=== PATIENT | female | born 1970 | race Caucasian/White ===

== ENCOUNTER 2017-04-17 19:02 | Emergency (ER) | payer MEDICAID ==
[~2017-04-17] VITALS: Ht 162.6 cm; Wt 74.0 kg
[~2017-04-17 19:02] MED LIST: DICL50TA11 PO; HYDR-3498 PO; PREN1TAB49 PO
[2017-04-17 19:05] VITALS: Ht 162.6 cm; Wt 74.0 kg
[2017-04-17] MEDS ORDERED: KETOROLAC 30 MG INJ IM STA (21:11)
[2017-04-17 21:13] LABS: URINE BLOOD (Dip) POC Trace-intact (NEGATIVE)
[2017-04-17] MEDS ORDERED: ONDA4TAB14 PO (22:17)
[2017-04-17] MEDS ORDERED: DICY10CA60 PO (22:17)
--- NOTE | 2017-04-17 22:24 | ERD ---
ER Documentation Chief Complaint Date/Time DATE: 04/17/17 TIME: 22:18 Chief Complaint painful urination x 1 day, N/V/D HPI Patient is a 46-year-old female past medical history of an appendectomy and cholecystectomy who presents to the emergency department with numerous complaints. Patient states she had painful urination for 1 day. Patient reports urinary frequency and urgency. Patient denies any hematuria or flank pain. She does report taking Azo for her symptoms. Patient states she has had nausea and vomiting as well as diarrhea since 2 days ago. Patient states she has had 3-4 episodes of nonbloody nonbilious vomiting today. Patient reports approximally 7 episodes of nonbloody nonmucousy, watery stools today. Patient states her last episode of diarrhea was 3 hours ago. Patient denies any fevers , chills. Patient does report diffuse abdominal cramping. Patient is able to tolerate rate p.o. fluids. Patient denies any sick contacts. No recent travel. No recent antibiotic use. ROS All systems reviewed and are negative except as per history of present illness. Medications Home Meds Active Scripts Ondansetron (Ondansetron Odt) 4 Mg Tab.rapdis, 4 MG PO Q6H Y for NAUSEA AND/OR VOMITING, #10 TAB Prov:REJI ALVAREZ PA-C 04/17/17 Dicyclomine Hcl* (Bentyl*) 10 Mg Capsule, 10 MG PO QID, #20 CAP Prov:REJI ALVAREZ PA-C 04/17/17 Diclofenac Sodium* (Diclofenac Sodium*) 50 Mg Tablet.dr, 50 MG PO TID, #10 TAB Prov:MARGRET SALAZAR DO 09/04/15 Hydrocodone Bit-Acetaminophen* ([place]*) 5-325 Mg Tab, 1 TAB PO Q6 Y for PAIN, # 10 TAB Prov:MARGRET SALAZAR DO 09/04/15 Reported Medications Vits W-Ca,Fe,Fa(<1MG) () 1 Tab Tablet, 1 TAB PO DAILY 06/08/11 Allergies Allergies: Coded Allergies: Penicillins (Verified Allergy, Mild, 09/04/15) PMhx/Soc History of Surgery: Yes (, JANAY, APPY) Anesthesia Reaction: No Hx Neurological Disorder: No Hx Respiratory Disorders: No Hx Cardiac Disorders: No Hx Psychiatric Problems: No Hx Miscellaneous Medical Probl: No Hx Alcohol Use: No Hx Substance Use: No Hx Tobacco Use: No Smoking Status: Never smoker Physical Exam Vitals Vital Signs Date Time Temp Pulse Resp B/P Pulse Ox O2 Delivery O2 Flow Rate FiO2 04/17/17 22:33 98.7 97 17 163/82 100 Room Air 04/17/17 19:05 98.3 110 20 163/88 100 Physical Exam GENERAL: Well-developed, well-nourished female. Appears in no acute distress. HEAD: Normocephalic, atraumatic. EYES: Pupils are equally reactive bilaterally. EOMs grossly intact. No conjunctival erythema. ENT: Moist mucous membranes. No uvula deviation. No kissing tonsils. NECK: Supple. No meningismus. Normal range of motion of the neck. LUNG: Clear to auscultation bilaterally. No rhonchi, wheezing, rales or coarse breath sounds. HEART: Regular rate and rhythm. No murmurs, rubs or gallops. ABDOMEN: Soft, and nondistended. Normal tenderness to palpation in all 4 quadrants. Positive bowel sounds in all four quadrants. No rebound tenderness, no guarding. (-) McBurney's point tenderness. No CVA tenderness. BACK: No midline tenderness. EXTREMITIES: Equal pulses bilaterally. No peripheral clubbing, cyanosis or edema. No unilateral leg swelling. NEUROLOGIC: Alert and oriented. Moving all four extremities without any difficulty. Normal speech. Steady gait. SKIN: Normal color. Warm and dry. No rashes or lesions. Results 24 hrs Laboratory Tests Test 04/17/17 21:20 Bedside Urine pH (LAB) 6.0 Bedside Urine Protein (LAB) Negative Bedside Urine Glucose (UA) Negative Bedside Urine Ketones (LAB) Negative Bedside Urine Blood Trace-intact Bedside Urine Nitrite (LAB) Negative Bedside Urine Leukocyte Esterase (L Negative Current Medications Medications (Trade) Dose Ordered Sig/Rose Marie Route PRN Reason Start Time Stop Time Status Last Admin Dose Admin Ketorolac Tromethamine (Toradol) 30 mg ONCE STAT IM 04/17/17 21:11 04/17/17 21:12 DC 04/17/17 21:40 Procedures/MDM MEDICAL DECISION MAKING: This is a 46-year-old female with past medical history of an appendectomy and cholecystectomy presents to the emergency department with numerous concerns including dysuria, nausea, vomiting and diarrhea. Patient states his dysuria has been present for 1 day. Patient states her nausea, vomiting diarrhea been present for 2 days.. Vital signs were reviewed. Patient is afebrile. Urine dip showed showed no evidence of acute infection or hematuria. . Low suspicion for UTI, pyelonephritis or nephrolithiasis. Urine test was negative. Patient was tolerating p.o. fluids. Low suspicion for the patient requiring IV rehydration therapy at this time. At this time patient's presentation is most consistent with dysuria and vomiting/diarrhea of viral etiology. Low suspicion for bowel obstruction, bowel perforation, pancreatitis, infectious diarrhea, UTI , pyelonephritis, nephrolithiasis. PRESCRIPTIONS: Bentyl, Zofran DISCHARGE: At this time, patient is stable for discharge and outpatient management. She was advised to drink plenty of fluids. Patient was a copy of all studies obtained today. I have instructed the patient to follow-up with his/her primary care physician in 1-2 days. I have instructed the patient to promptly return to the ER at any time for any new or worsening symptoms including increased pain, nausea, vomiting, diarrhea, fever, weakness or LOC. The patient and/or family expressed understanding of and agreement with this plan. All questions were answered. Home care instructions were provided. Disclaimer: Inadvertent spelling and grammatical errors are likely due to EHR/ dictation software use and do not reflect on the overall quality of patient care. Also, please note that the electronic time recorded on this note does not necessarily reflect the actual time of the patient encounter. Departure Diagnosis: Primary Impression: Nausea vomiting and diarrhea Additional Impression: Dysuria Condition: Stable Patient Instructions: Dysuria, Self-Care for Vomiting and Diarrhea Additional Instructions: Call your primary care doctor TOMORROW for an appointment during the next 1-2 days.See the doctor sooner or return here if your condition worsens before your appointment time. REJI ALVAREZ PA-C Apr 17, 2017 22:24
[2017-04-17 22:33] VITALS: BP 163/82; PULSE 97; RESP 17; TEMP 98.7
== END 2017-04-17 22:34 | disposition home or self-care (01) ==
LOC: FTE 19:02
DX: R11.2 Nausea with vomiting, unspecified (principal); R19.7 Diarrhea, unspecified; R30.0 Dysuria
CPT/HCPCS: 81003; J1885; 96372

== ENCOUNTER 2017-06-02 19:50 | Emergency (ER) | payer MEDICAID ==
[~2017-06-02] VITALS: Ht 162.6 cm; Wt 73.5 kg
[~2017-06-02 19:50] MED LIST changes: +DICY10CA60 PO; +ONDA4TAB14 PO
[2017-06-02 20:07] VITALS: Ht 162.6 cm; Wt 73.5 kg
[2017-06-02] MEDS ORDERED: SOD CHLORIDE 0.9% 1,000 ML IV STA (22:06)
[2017-06-02] MEDS ORDERED: morphine 4 MG/ML VIAL IV STA (22:06)
[2017-06-02] MEDS ORDERED: ONDANSETRON 4 MG INJ IV STA (22:06)
--- NOTE | 2017-06-02 22:53 | RADRPT ---
PROCEDURE: US Pelvis. CLINICAL INDICATION: Pelvic pain. TECHNIQUE: The pelvis was evaluated with transabdominal and transvaginal sonography in the axial a nd sagittal planes. COMPARISON: No prior study is available for comparison. FINDINGS: Uterus: 9.5 x 5.2 x 6.2 cm. Endometrium: 10.1 mm. Right ovary: Not visualized. Left ovary: 3.1 x 2.2 x 2.3 cm. Uterine masses: There is a fundal fibroid measuring 3.3 cm in maximal dimension. The uterus is diffu sely heterogeneous. Ovarian masses: The right ovary is not visualized. The left ovary is normal. Color Doppler and pulse d Doppler sonography demonstrate normal flow to the left ovary. Other pelvic masses: None. Free fluid: None. IMPRESSION: 1. Fundal fibroid measuring 3.3 cm. 2. Right ovary not visualized. 3. Otherwise normal pelvic ultrasound. RPTAT: QQ .Harjit Saldaña MD, MD Date Time Electronically viewed and signed by .Harjit Saldaña MD, on 06/02/2017 22:53 .R/
[2017-06-02 23:10] LABS: BASOPHIL # 0.1 10^3/ul (0.0-0.1); BASOPHILS % 0.6 % (0.0-2.0); EOSINOPHILS # 0.3 10^3/ul (0.0-0.5); HEMATOCRIT 39.2 % (37.0-47.0); HEMOGLOBIN 12.9 g/dl (12.0-16.0); LYMPHOCYTES # 2.6 10^3/ul (0.8-2.9); LYMPHOCYTES % 22.5 % (15.0-51.0); MEAN CORPUSCULAR HEMOGLOBIN 29.6 pg (29.0-33.0); MEAN CORPUSCULAR HGB CONC 32.9 g/dl (32.0-37.0); MEAN CORPUSCULAR VOLUME 89.9 fl (82.0-101.0); MEAN PLATELET VOLUME 9.9 fl (7.4-10.4); MONOCYTE # 0.8 10^3/ul (0.3-0.9); NEUTROPHIL # 7.7 10^3/ul (1.6-7.5); NEUTROPHILS % 66.5 % (39.0-77.0); PLATELET COUNT 387 10^3/UL (140-415); RED BLOOD COUNT 4.36 10^6/ul (4.20-5.40); RED CELL DISTRIBUTION WIDTH 13.2 % (11.5-14.5); WHITE BLOOD COUNT 11.5 10^3/ul (4.8-10.8)
[2017-06-02 23:12] LABS: ADD UMIC NO; UR ASCORBIC ACID NEGATIVE (NEGATIVE); UR BILIRUBIN (Dip) NEGATIVE (NEGATIVE); UR BLOOD (Dip) NEGATIVE (NEGATIVE); UR CLARITY CLEAR (CLEAR); UR COLOR YELLOW (YELLOW); UR GLUCOSE (Dip) NEGATIVE (NEGATIVE); UR KETONES (Dip) NEGATIVE (NEGATIVE); UR LEUKOCYTE ESTERASE (Dip) NEGATIVE Leu/ul (NEGATIVE); UR NITRITE (Dip) NEGATIVE (NEGATIVE); UR SPECIFIC GRAVITY (Dip) 1.016 (1.003-1.030); UR TOTAL PROTEIN (Dip) NEGATIVE (NEGATIVE); UR UROBILINOGEN (Dip) NEGATIVE (NEGATIVE)
[2017-06-02 23:29] LABS: ALBUMIN 4.5 g/dl (3.3-4.9); ALBUMIN/GLOBULIN RATIO 1.07; CALCIUM 9.7 mg/dl (8.4-10.2); CREATININE 0.6 mg/dl (0.44-1.00); POTASSIUM 4.2 mmol/L (3.5-5.1); TOTAL PROTEIN 8.7 g/dl (6.1-8.1)
--- NOTE | 2017-06-03 01:03 | RADRPT ---
PROCEDURE: CT Abdomen and pelvis without contrast. CLINICAL INDICATION: Abdominal pain. TECHNIQUE: CT scan of the abdomen and pelvis was performed on a multi-detector high-resolution CT scanner. Contiguous axial images were obtained from the lung bases to the ischial tuberosities wit hout intravenous contrast. Coronal and sagittal reformatted images were also obtained. Images were reviewed on the PACS workstation. One or more of the following dose reduction techniques were used: - Automated exposure control. - Adjustment of the mA and/or kV according to patient size. - Use of iterative reconstruction technique. Exam CTD/vol = 12.71 mGy. Total exam DLP = 774.73 mGy-cm. COMPARISON: None. FINDINGS: Evaluation of the lung bases demonstrates mild bibasilar atelectasis. Abdomen: The liver is normal in size. There is no focal mass or dilatation of the biliary tree. T he patient is status post cholecystectomy. The spleen, pancreas and bilateral adrenal glands are wi thin normal limits. Bilateral kidneys are normal in size with no contour deforming mass identified. There are multiple right renal calculi with the largest measuring 21 x 13 mm. There are punctate 1 mm calculi within the lower pole of the left kidney. There is mild to moderate left-sided hydroneph rosis. ureteral calculus identified. There is no hydronephrosis or hydroureter. There is no retrop eritoneal adenopathy. The abdominal aorta is of normal caliber with mild scattered atherosclerotic calcifications. There is no abnormal bowel wall thickening or distension. There is no bowel obstruction or free air . The appendix is not visualized. There is no diverticulosis or diverticulitis. There is no ascit es. Pelvis: The bladder is unremarkable. The uterus and adnexa are within normal limits. There are mu ltiple calculi at the left ureterovesicular junction measuring up to 10 mm in size. There is no sig nificant pelvic adenopathy or free fluid. Evaluation of the osseous structures demonstrates no suspicious lytic or blastic lesion. IMPRESSION: Multiple calculi at the left ureterovesicular junction measuring up to 10 mm in size. There is mild to moderate left-sided hydronephrosis. Bilateral renal calculi. Status post cholecystectomy. Mild vascular calcifications reflective of atherosclerosis. Mild bibasilar atelectasis. .Austin Hampton MD, MD Date Time Electronically viewed and signed by .Austin Hampton MD, MD on 06/03/2017 01:03 .T/
[2017-06-03] MEDS ORDERED: IBUP-1542 PO (01:16)
[2017-06-03] MEDS ORDERED: HYDR-906 PO (01:16)
--- NOTE | 2017-06-03 01:24 | ERD ---
ER Documentation Chief Complaint Date/Time DATE: 06/03/17 TIME: Chief Complaint left abdominal pain x 1 week. on atb for uti HPI This is a 47 y/o female that presents to the ER with left sided abdominal pain that started a week ago. Patient is currently being treated for a UTI and is taking antibiotics. Pain is severe and intermittent. At times it is very sharp. It is non radiating and nothing makes it better or worse. Patient denies any fever/ chills. She denies any n/v/d. Patient has not traveled anywhere. Patient denies any urinary frequency or dysuria, she denies any hematuria. Has any pelvic pain. ROS 12 point review of systems was done, all negative except per HPI. Medications Home Meds Active Scripts Ibuprofen* (Motrin*) 600 Mg Tab, 600 MG PO Q6, #30 TAB Prov:JUAN ARELLANO 06/03/17 Hydrocodone/Acetaminophen ([place] 5-325 Tablet) 1 Each Tablet, 1 TAB PO Q6H Y for PAIN, #20 TAB Prov:JUAN ARELLANO 06/03/17 Ondansetron (Ondansetron Odt) 4 Mg Tab.rapdis, 4 MG PO Q6H Y for NAUSEA AND/OR VOMITING, #10 TAB Prov:REJI ALVAREZ PA-C 04/17/17 Dicyclomine Hcl* (Bentyl*) 10 Mg Capsule, 10 MG PO QID, #20 CAP Prov:REJI ALVAREZ PA-C 04/17/17 Diclofenac Sodium* (Diclofenac Sodium*) 50 Mg Tablet.dr, 50 MG PO TID, #10 TAB Prov:MARGRET SALAZAR DO 09/04/15 Hydrocodone Bit-Acetaminophen* ([place]*) 5-325 Mg Tab, 1 TAB PO Q6 Y for PAIN, # 10 TAB Prov:MARGRET SALAZAR DO 09/04/15 Reported Medications Vits W-Ca,Fe,Fa(<1MG) () 1 Tab Tablet, 1 TAB PO DAILY 06/08/11 Allergies Allergies: Coded Allergies: Penicillins (Verified Allergy, Mild, 06/02/17) PMhx/Soc History of Surgery: Yes (, JANAY, APPY) Anesthesia Reaction: No Hx Neurological Disorder: No Hx Respiratory Disorders: No Hx Cardiac Disorders: No Hx Psychiatric Problems: No Hx Miscellaneous Medical Probl: No Hx Alcohol Use: No Hx Substance Use: No Hx Tobacco Use: No Smoking Status: Never smoker Physical Exam Vitals Physical Exam Const: [] Head: Atraumatic Eyes: Normal Conjunctiva ENT: Normal External Ears, Nose and Mouth. Neck: Full range of motion..~ No meningismus. Resp: Clear to auscultation bilaterally Cardio: Regular rate and rhythm, no murmurs Abd: Soft, non tender, non distended. Normal bowel sounds Skin: No petechiae or rashes Back: No midline or flank tenderness Ext: No cyanosis, or edema Neur: Awake and alert Psych: Normal Mood and Affect Results 24 hrs Laboratory Tests Test 06/02/17 22:17 06/02/17 22:42 Urine Color YELLOW Urine Clarity CLEAR Urine pH 6.0 Urine Specific [place] 1.016 Urine Ketones NEGATIVEmg/dL Urine Nitrite NEGATIVEmg/dL Urine Bilirubin NEGATIVEmg/dL Urine Urobilinogen NEGATIVEmg/dL Urine Leukocyte Esterase NEGATIVELeu/ul Urine Hemoglobin NEGATIVEmg/dL Urine Glucose NEGATIVEmg/dL Urine Total Protein NEGATIVEmg/dl Urine Test NEGATIVE White Blood Count 11.510^3/ul Red Blood Count 4.3610^6/ul Hemoglobin 12.9g/dl Hematocrit 39.2% Mean Corpuscular Volume 89.9fl Mean Corpuscular Hemoglobin 29.6pg Mean Corpuscular Hemoglobin Concent 32.9g/dl Red Cell Distribution Width 13.2% Platelet Count 85141^3/UL Mean Platelet Volume 9.9fl Neutrophils % 66.5% Lymphocytes % 22.5% Monocytes % 7.0% Eosinophils % 3.0% Basophils % 0.6% Nucleated Red Blood Cells % 0.0/100WBC Neutrophils # 7.710^3/ul Lymphocytes # 2.610^3/ul Monocytes # 0.810^3/ul Eosinophils # 0.310^3/ul Basophils # 0.110^3/ul Nucleated Red Blood Cells # 0.010^3/ul Sodium Level 141mmol/L Potassium Level 4.2mmol/L Chloride Level 104mmol/L Carbon Dioxide Level 27mmol/L Anion Gap 14 Blood Urea Nitrogen 16mg/dl Creatinine 0.60mg/dl Glucose Level 161mg/dl Calcium Level 9.7mg/dl Total Bilirubin 0.0mg/dl Direct Bilirubin 0.00mg/dl Indirect Bilirubin 0.0mg/dl Aspartate Amino Transf (AST/SGOT) 17IU/L Alanine Aminotransferase (ALT/SGPT) 32IU/L Alkaline Phosphatase 76IU/L Total Protein 8.7g/dl Albumin 4.5g/dl Globulin 4.20g/dl Albumin/Globulin Ratio 1.07 Lipase 137U/L Current Medications Medications (Trade) Dose Ordered Sig/Rose Marie Route PRN Reason Start Time Stop Time Status Last Admin Dose Admin Sodium Chloride (NS) 1,000 ml @ 1,000 mls/hr Q1H STAT IV 06/02/17 22:06 06/02/17 23:05 DC 06/02/17 22:46 Morphine Sulfate (morphine) 4 mg ONCE STAT IV 06/02/17 22:06 06/02/17 22:08 DC Ondansetron HCl (Zofran Inj) 4 mg ONCE STAT IV 06/02/17 22:06 06/02/17 22:08 DC [place] [id number] Radiology Main Line: [phone] DIAGNOSTIC IMAGING REPORT Patient: ABBY GARCIA : 1970 Age: 47 Sex: F [id number] DOS: 06/02/172205 Ordering MD: JUAN ARELLANO PA-C Location: [facility] Room/Bed: PROCEDURE: CT Abdomen and pelvis without contrast. CLINICAL INDICATION: Abdominal pain. TECHNIQUE: CT scan of the abdomen and pelvis was performed on a multi- detector high-resolution CT scanner. Contiguous axial images were obtained from the lung bases to the ischial tuberosities without intravenous contrast. Coronal and sagittal reformatted images were also obtained. Images were reviewed on the PACS workstation. One or more of the following dose reduction techniques were used: - Automated exposure control. - Adjustment of the mA and/or kV according to patient size. - Use of iterative reconstruction technique. Exam CTD/vol = 12.71 mGy. Total exam DLP = 774.73 mGy-cm. COMPARISON: None. FINDINGS: Evaluation of the lung bases demonstrates mild bibasilar atelectasis. Abdomen: The liver is normal in size. There is no focal mass or dilatation of the biliary tree. The patient is status post cholecystectomy. The spleen, pancreas and bilateral adrenal glands are within normal limits. Bilateral kidneys are normal in size with no contour deforming mass identified. There are multiple right renal calculi with the largest measuring 21 x 13 mm. There are punctate 1 mm calculi within the lower pole of the left kidney. There is mild to moderate left-sided hydronephrosis. ureteral calculus identified. There is no hydronephrosis or hydroureter. There is no retroperitoneal adenopathy. The abdominal aorta is of normal caliber with mild scattered atherosclerotic calcifications. There is no abnormal bowel wall thickening or distension. There is no bowel obstruction or free air. The appendix is not visualized. There is no diverticulosis or diverticulitis. There is no ascites. Pelvis: The bladder is unremarkable. The uterus and adnexa are within normal limits. There are multiple calculi at the left ureterovesicular junction measuring up to 10 mm in size. There is no significant pelvic adenopathy or free fluid. Evaluation of the osseous structures demonstrates no suspicious lytic or blastic lesion. IMPRESSION: Multiple calculi at the left ureterovesicular junction measuring up to 10 mm in size. There is mild to moderate left-sided hydronephrosis. Bilateral renal calculi. Status post cholecystectomy. Mild vascular calcifications reflective of atherosclerosis. Mild bibasilar atelectasis. .Austin Hampton MD, MD Date Time Electronically viewed and signed by .Austin Hampton MD, MD on 06/03/2017 01:03 .T/ CC: JUAN ARELLANO [id number] [place] [id number] Radiology Main Line: [phone] DIAGNOSTIC IMAGING REPORT Patient: ABBY GARCIA : 1970 Age: 47 Sex: F MR #: [id number] DOS: 06/02/17 0000 Ordering MD: JUAN ARELLANO. JUANJO-Radha Location: [facility] Room/Bed: PROCEDURE: US Pelvis. CLINICAL INDICATION: Pelvic pain. TECHNIQUE: The pelvis was evaluated with transabdominal and transvaginal sonography in the axial and sagittal planes. COMPARISON: No prior study is available for comparison. FINDINGS: Uterus: 9.5 x 5.2 x 6.2 cm. Endometrium: 10.1 mm. Right ovary: Not visualized. Left ovary: 3.1 x 2.2 x 2.3 cm. Uterine masses: There is a fundal fibroid measuring 3.3 cm in maximal dimension. The uterus is diffusely heterogeneous. Ovarian masses: The right ovary is not visualized. The left ovary is normal. Color Doppler and pulsed Doppler sonography demonstrate normal flow to the left ovary. Other pelvic masses: None. Free fluid: None. IMPRESSION: 1. Fundal fibroid measuring 3.3 cm. 2. Right ovary not visualized. 3. Otherwise normal pelvic ultrasound. RPTAT: QQ .Harjit Saldaña MD, MD Date Time Electronically viewed and signed by .Harjit Saldaña MD, MD on 06/02/2017 22:53 .R/ CC: JUAN ARELLANO/[facility] I discussed this case and the CT scan findings with my supervising physician Dr. Teixeira. Patient does have very large kidney stones, which will not pass on their own, however patient is able to follow-up on outpatient basis with the urologist she does not have any evidence of severe hydronephrosis, kidney dysfunction or urinary tract infection. Urgently needs to follow-up with a urologist, patient is currently afebrile and well-appearing. Suspicion for obstructive stone is low. Also has a fibroid, which may be attributing to some of the pain. Patient needs to follow-up with her primary care doctor within 1- 2 days return to ER sooner if symptoms worsen. My medical decision making shared with the patient she understands and agrees with plan. Departure Diagnosis: Primary Impression: Fibroid Additional Impression: Kidney stone Condition: Stable Patient Instructions: Kidney Stone W/ Colic Referrals: NIC SANCHEZ MD Additional Instructions: TIENE QUE IR CON UN UROLOGO. TIENE MAR CLINT EN EL RINON MUY CHADWICK QUE NO VA A SALIR AMALIA. VALLA CON MORGAN DOCOTOR DE CEBEZERA Y LE PIDE MAR AUTORIZACION. REGRESE A LA TULIO DE EMERGENCIA SI ANNAMARIA SIMPTOMAS CONTINUAN. JUAN ARELLANO Jun 03, 2017 01:24
[2017-06-03 01:30] VITALS: BP 130/78; PULSE 77; RESP 20; TEMP 98
== END 2017-06-03 01:31 | disposition home or self-care (01) ==
LOC: FTE 19:50
DX: D25.9 Leiomyoma of uterus, unspecified (principal); N20.0 Calculus of kidney; R10.2 Pelvic and perineal pain
CPT/HCPCS: 74176; 76830; 76856; 80053; 81003; 83690; 84703; 85025; J7030; 36415

== ENCOUNTER 2017-07-13 13:15 | Emergency (ER) | payer MEDICAID ==
[~2017-07-13] VITALS: Ht 162.6 cm; Wt 73.4 kg
[~2017-07-13 13:15] MED LIST changes: +HYDR-906 PO; +IBUP-1542 PO
[2017-07-13 13:17] VITALS: Ht 162.6 cm; Wt 73.4 kg
[2017-07-13] MEDS ORDERED: ONDANSETRON 4 MG INJ IV STA ×2 (15:24→18:50)
[2017-07-13] MEDS ORDERED: SOD CHLORIDE 0.9% 1,000 ML IV STA (15:24)
[2017-07-13] MEDS ORDERED: ACETAMINOPHEN 325 MG TAB PO ONE (15:30)
[2017-07-13] MEDS ORDERED: IBUPROFEN 600 MG TAB PO ONE (15:30)
[2017-07-13] MEDS: morphine 4 MG/ML VIAL IV STA ×2 (15:56→16:04)
--- NOTE | 2017-07-13 16:20 | RADRPT ---
PROCEDURE: CT Abdomen and Pelvis without contrast. CLINICAL INDICATION: Abdominal pain with nausea and vomiting. TECHNIQUE: CT scan of the abdomen and pelvis without contrast was performed on a multidetector hig h-resolution CT scanner. The patient was scanned without intravenous contrast. Coronal and sagittal reformatted images were obtained from the axial source images. Images were reviewed on a high-resol [employer] PACS workstation. The total exam CTDI equals 11.97 mGy and the total exam DLP equals 675.26 mG y-cm. One or more of the following dose reduction techniques were used: Automated exposure control. Adjustment of the mA and/or kV according to patient size. Use of iterative reconstruction technique. COMPARISON: CT abdomen and pelvis 06/03/2017. FINDINGS: CT abdomen: The lung bases are clear. The heart size is normal, without pericardial thickening or effusion. Th e liver is normal in size and density without focal mass or intrahepatic biliary dilatation. The sp aysha is normal in size and homogeneous in density. The stomach is partially collapsed, but is gross ly unremarkable. The pancreas as visualized is normal. The gallbladder is surgically absent. There is no evidence for biliary dilatation. The adrenal glands are symmetric and normal. There has been interval improvement of left-sided hydroureteronephrosis. Multiple stones in the left UV junction appear similar to prior. The largest measures up to 9 mm. There are multiple nonobstruc ting stones in the right kidney measures up to 1.9 cm in the upper pole right kidney. There are a fe w punctate nonobstructing stones in the left kidney. The aorta is of normal caliber. Scattered aortic vascular calcifications are present. There is no re troperitoneal lymphadenopathy. The lexus hepatis region is clear. The bowel and mesentery, as visu alized, are equally unremarkable. CT pelvis: The small bowel loops situated within the pelvis are unremarkable. The pelvic organs are normal. T he pelvic sidewalls and inguinal regions are clear. The sigmoid colon and rectum are unremarkable. No mass, lymphadenopathy, or free fluid is seen. No acute inflammation is seen. The surrounding o sseous structures are remarkable for degenerative spondylosis of the spine. No osteolytic or osteob lastic lesion is detected. IMPRESSION: 1. Improved left-sided hydronephrosis with no substantial change in stone burden in the left UV edwin ction. 2. Numerous nonobstructing stones in the right kidney measures up to 1.9 cm, unchanged. 3. Few punctate 1-2 mm nonobstructing stones in the left kidney, unchanged. 4. Status post cholecystectomy. No biliary ductal dilatation. 5. Scattered aortic vascular calcifications. RPTAT: BB .Landen Moreno MD, Date Time Electronically viewed and signed by .Landen Moreno MD, on 07/13/2017 16:20 .O/
--- NOTE | 2017-07-13 16:43 | RADRPT ---
PROCEDURE: US Pelvis. CLINICAL INDICATION: Pelvic pain. TECHNIQUE: The pelvis was evaluated with transabdominal and transvaginal sonography in the axial a nd sagittal planes. COMPARISON: No prior study is available for comparison. FINDINGS: The uterus measures 9.3 x 4.7 x 5.8 cm. There is a fibroid on the left side anteriorly in the uterus measuring 2.2 x 1.7 x 1.8 cm there is no other uterine mass. The endometrium is normal measuring 8. 4 mm. The ovaries are not visualized. There is no other pelvic mass or free fluid. IMPRESSION: 1. Fibroid in the left side of the uterus anteriorly measuring 2.2 cm in maximal dimension. 2. Normal endometrium. 3. Ovaries not visualized. 4. Otherwise normal pelvic ultrasound. RPTAT: QQ .Harjit Saldaña MD, Date Time Electronically viewed and signed by .Harjit Saldaña MD, on 07/13/2017 16:43 .R/
[2017-07-13] MEDS ORDERED: CEFTRIAXONE 1 GM/50 ML (PMX) 50 ML IVPB ONE (17:30)
[2017-07-13] MEDS ORDERED: NAPR-260 PO (17:46)
[2017-07-13] MEDS ORDERED: CIPR500T4 PO (17:46)
[2017-07-13] MEDS ORDERED: HYDR-906 PO (17:46)
--- NOTE | 2017-07-13 17:49 | ERD ---
ER Documentation Chief Complaint Chief Complaint abd pain with vomiting /diarrhea x 1 day HPI Patient is a 47-year-old female with past medical history of kidney stones presenting to the emergency department with complaints of left sided suprapubic pain which began today. The pain feels burning in quality. Associated symptoms include hematuria, nausea, vomiting, diarrhea, and fever. Pain is worse with movement. The patient was here recently and had a full workup which showed a nonobstructing kidney stones, she was advised to follow-up with urology but has not done so yet. She has taken no medication for relief of symptoms. No other symptoms reported currently. ROS All systems reviewed and are negative except as per history of present illness. Medications Home Meds Active Scripts Hydrocodone/Acetaminophen ([place] 5-325 Tablet) 1 Each Tablet, 1 TAB PO Q6H Y for PAIN, #10 TAB Prov:FREDRICK DE LA ROSA PA-C 07/13/17 Naproxen* (Naprosyn*) 500 Mg Tablet, 500 MG PO BID Y for PAIN AND/OR INFLAMMATION, #20 TAB Prov:FREDRICK DE LA ROSA PA-C 07/13/17 Ciprofloxacin Hcl* (Ciprofloxacin Hcl*) 500 Mg Tablet, 500 MG PO BID for 10 Days , #20 TAB Prov:FREDRICK DE LA ROSA PA-C 07/13/17 Ibuprofen* (Motrin*) 600 Mg Tab, 600 MG PO Q6, #30 TAB Prov:JUAN ARELLANO 06/03/17 Hydrocodone/Acetaminophen ([place] 5-325 Tablet) 1 Each Tablet, 1 TAB PO Q6H Y for PAIN, #20 TAB Prov:JUAN ARELLANO 06/03/17 Ondansetron (Ondansetron Odt) 4 Mg Tab.rapdis, 4 MG PO Q6H Y for NAUSEA AND/OR VOMITING, #10 TAB Prov:REJI ALVAREZ PA-C 04/17/17 Dicyclomine Hcl* (Bentyl*) 10 Mg Capsule, 10 MG PO QID, #20 CAP Prov:REJI ALVAREZ PA-C 04/17/17 Diclofenac Sodium* (Diclofenac Sodium*) 50 Mg Tablet.dr, 50 MG PO TID, #10 TAB Prov:MARGRET SALAZAR DO 09/04/15 Hydrocodone Bit-Acetaminophen* ([place]*) 5-325 Mg Tab, 1 TAB PO Q6 Y for PAIN, # 10 TAB Prov:MARGRET SALAZAR DO 09/04/15 Reported Medications Vits W-Ca,Fe,Fa(<1MG) () 1 Tab Tablet, 1 TAB PO DAILY 06/08/11 Allergies Allergies: Coded Allergies: Penicillins (Verified Allergy, Mild, 06/02/17) PMhx/Soc History of Surgery: Yes (, JANAY, APPY) Anesthesia Reaction: No Hx Neurological Disorder: No Hx Respiratory Disorders: No Hx Cardiac Disorders: No Hx Psychiatric Problems: No Hx Miscellaneous Medical Probl: No Hx Alcohol Use: No Hx Substance Use: No Hx Tobacco Use: No Smoking Status: Never smoker Physical Exam Vitals Vital Signs Date Time Temp Pulse Resp B/P Pulse Ox O2 Delivery O2 Flow Rate FiO2 07/13/17 13:17 101.3 118 18 166/92 99 Physical Exam Const: Patient is nontoxic-appearing. Mildly distressed secondary to pain. Head: Atraumatic Eyes: Normal Conjunctiva ENT: Normal External Ears, Nose and Mouth. Neck: Full range of motion..~ No meningismus. Resp: Clear to auscultation bilaterally Cardio: Regular rate and rhythm, no murmurs Abd: Soft, non tender to the 4 quadrants of the abdomen, however there is tenderness to palpation of the left-sided suprapubic area, no rebound tenderness or guarding, no McBurney's point tenderness, non distended. Normal bowel sounds Skin: No petechiae or rashes Back: No midline or flank tenderness Ext: No cyanosis, or edema Neur: Awake and alert Psych: Normal Mood and Affect Result Diagram: 07/13/17 1529 07/13/17 1529 Results 24 hrs Laboratory Tests Test 07/13/17 15:00 07/13/17 15:29 Urine Color TYREE Urine Clarity SLIGHTLY CLOUDY Urine pH 6.0 Urine Specific [place] 1.015 Urine Ketones NEGATIVEmg/dL Urine Nitrite POSITIVEmg/dL Urine Bilirubin NEGATIVEmg/dL Urine Urobilinogen 2+mg/dL Urine Leukocyte Esterase 1+Nesha/ul Urine Microscopic RBC > 182/HPF Urine Microscopic WBC > 182/HPF Urine Bacteria FEW/HPF Urine Hemoglobin 3+mg/dL Urine Glucose NEGATIVEmg/dL Urine Total Protein 2+mg/dl White Blood Count 20.010^3/ul Red Blood Count 4.5810^6/ul Hemoglobin 13.5g/dl Hematocrit 40.2% Mean Corpuscular Volume 87.8fl Mean Corpuscular Hemoglobin 29.5pg Mean Corpuscular Hemoglobin Concent 33.6g/dl Red Cell Distribution Width 13.2% Platelet Count 06019^3/UL Mean Platelet Volume 9.8fl Neutrophils % 84.8% Lymphocytes % 7.9% Monocytes % 5.9% Eosinophils % 0.7% Basophils % 0.3% Nucleated Red Blood Cells % 0.0/100WBC Neutrophils # 17.010^3/ul Lymphocytes # 1.610^3/ul Monocytes # 1.210^3/ul Eosinophils # 0.210^3/ul Basophils # 0.110^3/ul Nucleated Red Blood Cells # 0.010^3/ul Prothrombin Time 12.1Sec Prothrombin Time Ratio 0.9 INR International Normalized Ratio 0.90 Activated Partial Thromboplast Time 26.9Sec Sodium Level 140mmol/L Potassium Level 4.5mmol/L Chloride Level 104mmol/L Carbon Dioxide Level 24mmol/L Anion Gap 17 Blood Urea Nitrogen 12mg/dl Creatinine 0.63mg/dl Glucose Level 132mg/dl Lactic Acid Level 1.2mmol/L Calcium Level 9.5mg/dl Total Bilirubin 0.7mg/dl Direct Bilirubin 0.00mg/dl Indirect Bilirubin 0.7mg/dl Aspartate Amino Transf (AST/SGOT) 22IU/L Alanine Aminotransferase (ALT/SGPT) 25IU/L Alkaline Phosphatase 92IU/L Total Protein 8.4g/dl Albumin 4.5g/dl Globulin 3.90g/dl Albumin/Globulin Ratio 1.15 Lipase 87U/L Current Medications Medications (Trade) Dose Ordered Sig/Rose Marie Route PRN Reason Start Time Stop Time Status Last Admin Dose Admin Sodium Chloride (NS) 1,000 ml @ 1,000 mls/hr Q1H STAT IV 07/13/17 15:24 07/13/17 16:23 DC 07/13/17 15:56 Morphine Sulfate (morphine) 4 mg ONCE STAT IV 07/13/17 15:24 07/13/17 15:27 DC 07/13/17 16:04 Ondansetron HCl (Zofran Inj) 4 mg ONCE STAT IV 07/13/17 15:24 07/13/17 15:27 DC 07/13/17 15:56 Acetaminophen (Tylenol Tab) 650 mg ONCE ONCE PO 07/13/17 15:30 07/13/17 15:31 DC 07/13/17 15:56 Ibuprofen 600 mg 600 mg ONCE ONCE PO 07/13/17 15:30 07/13/17 15:31 DC 07/13/17 15:56 Ceftriaxone Sodium (Rocephin) 50 ml @ 100 mls/hr ONCE ONCE IVPB 07/13/17 17:30 07/13/17 17:59 DC 07/13/17 17:43 Procedures/[facility] 47 old female presenting to the emergency department with complaints of left- sided suprapubic pain. The patient was placed in a gurney. IV line established. She was given IV fluids, IV morphine, IV Zofran, p.o. Tylenol, p.o. ibuprofen, and reevaluation the patient's temperature reduced and she was feeling significantly improved. Upon review of the patient's past medical records, it was noted that she had a abdominal and pelvic CT and pelvis ultrasound on 06-02-17 which showed multiple calculi at the left ureterovesical junction measuring up to 10 mm in size there is also mild to moderate left- sided hydronephrosis. There is no evidence of obstruction at that time. On pelvic ultrasound there is a fundal fibroid measuring 2.3 cm. The right ovary was not visualized. Otherwise normal pelvic ultrasound. On today's visit, review of laboratory results showed leukocytosis at 20 with slight left shift. Chemistry panel showed no significant acute abnormalities. Lactic acid was 1.2, not elevated. Review of urinalysis showed 3+ hemoglobin, 2 + protein, 1+ leukocyte, and positive for nitrite, concerning for pyelonephritis. Upon review of this information, I ordered IV ceftriaxone 1 g. Review of imaging results from today: CT abdomen and pelvis without contrast showed improved left-sided hydronephrosis with no substantial change in stone burden in the left UV junction. There are numerous nonobstructing stones in the right kidney measuring up to 1.9 cm, unchanged. Few punctate 1-2 mm nonobstructing stones in the left kidney, unchanged. Status post cholecystectomy. No biliary duct dilatation. Scattered aortic vascular calcifications. Upon review of the workup in the emergency department, I had a discussion with the patient stating that it is very important for her to follow-up with urology. She states she does have an appointment with specialist this Monday, in 4 days. She is to return immediately if she has any new or worsening symptoms. All lab results and imaging results were shared with the patient. I discussion with the attending physician, Dr. Nitza Smith, who is in agreement with the assessment and plan to have very close urological follow-up with immediate return if she has any new or worsening symptoms. The patient demonstrated good understanding of all information. She will be discharged home with prescriptions for ciprofloxacin, [place], and ibuprofen. No evidence of life-threatening pathology at time of discharge. Pt/family in agreement with discharge plan/diagnosis. Pt/family advised to return immediately with any new or worsening symptoms. Follow-up with primary care physician within the next 1-2 days. Disclaimer: Inadvertent spelling and grammatical errors are likely due to EHR/ dictation software use and do not reflect on the overall quality of patient care. Also, please note that the electronic time recorded on this note does not necessarily reflect the actual time of the patient encounter. PROCEDURE: CT Abdomen and Pelvis without contrast. CLINICAL INDICATION: Abdominal pain with nausea and vomiting. TECHNIQUE: CT scan of the abdomen and pelvis without contrast was performed on a multidetector high-resolution CT scanner. The patient was scanned without intravenous contrast. Coronal and sagittal reformatted images were obtained from the axial source images. Images were reviewed on a high-resolution PACS workstation. The total exam CTDI equals 11.97 mGy and the total exam DLP equals 675.26 mGy-cm. One or more of the following dose reduction techniques were used: Automated exposure control. Adjustment of the mA and/or kV according to patient size. Use of iterative reconstruction technique. COMPARISON: CT abdomen and pelvis 06/03/2017. FINDINGS: CT abdomen: The lung bases are clear. The heart size is normal, without pericardial thickening or effusion. The liver is normal in size and density without focal mass or intrahepatic biliary dilatation. The spleen is normal in size and homogeneous in density. The stomach is partially collapsed, but is grossly unremarkable. The pancreas as visualized is normal. The gallbladder is surgically absent. There is no evidence for biliary dilatation. The adrenal glands are symmetric and normal. There has been interval improvement of left-sided hydroureteronephrosis. Multiple stones in the left UV junction appear similar to prior. The largest measures up to 9 mm. There are multiple nonobstructing stones in the right kidney measures up to 1.9 cm in the upper pole right kidney. There are a few punctate nonobstructing stones in the left kidney. The aorta is of normal caliber. Scattered aortic vascular calcifications are present. There is no retroperitoneal lymphadenopathy. The lexus hepatis region is clear. The bowel and mesentery, as visualized, are equally unremarkable. CT pelvis: The small bowel loops situated within the pelvis are unremarkable. The pelvic organs are normal. The pelvic sidewalls and inguinal regions are clear. The sigmoid colon and rectum are unremarkable. No mass, lymphadenopathy, or free fluid is seen. No acute inflammation is seen. The surrounding osseous structures are remarkable for degenerative spondylosis of the spine. No osteolytic or osteoblastic lesion is detected. IMPRESSION: 1. Improved left-sided hydronephrosis with no substantial change in stone burden in the left UV junction. 2. Numerous nonobstructing stones in the right kidney measures up to 1.9 cm, unchanged. 3. Few punctate 1-2 mm nonobstructing stones in the left kidney, unchanged. 4. Status post cholecystectomy. No biliary ductal dilatation. 5. Scattered aortic vascular calcifications. RPTAT: BB .Landen Moreno MD, MD Date Time Electronically viewed and signed by .Landen Moreno MD, on 07/13/2017 16:20 PROCEDURE: US Pelvis. CLINICAL INDICATION: Pelvic pain. TECHNIQUE: The pelvis was evaluated with transabdominal and transvaginal sonography in the axial and sagittal planes. COMPARISON: No prior study is available for comparison. FINDINGS: The uterus measures 9.3 x 4.7 x 5.8 cm. There is a fibroid on the left side anteriorly in the uterus measuring 2.2 x 1.7 x 1.8 cm there is no other uterine mass. The endometrium is normal measuring 8.4 mm. The ovaries are not visualized. There is no other pelvic mass or free fluid. IMPRESSION: 1. Fibroid in the left side of the uterus anteriorly measuring 2.2 cm in maximal dimension. 2. Normal endometrium. 3. Ovaries not visualized. 4. Otherwise normal pelvic ultrasound. RPTAT: QQ .Harjit Saldaña MD, Date Time Electronically viewed and signed by .Harjit Saldaña MD, MD on 07/13/2017 16:43 Departure Diagnosis: Primary Impression: Pyelonephritis Condition: Fair Patient Instructions: Pyelonephritis, Female (Adult) [facility] Usted se pacheco hecho un examen mdico de control que le indica que no est en chitra condicin que requiera tratamiento urgente en el Departamento de Emergencia. Un estudio ms profundo y el tratamiento de randall condicin pueden esperar sin ningn riesgo hasta que usted sea atendida/o en el consultorio de randall mdico o chitra cl smith. Es responsabilidad suya arreglar chitra jacob para el seguimiento del ceci. MANEJO DE CONDICIONES NO URGENTES EN EL FUTURO 1) Si usted tiene un mdico de atencin primaria: Usted debera llamar a randall mdico de atencin primaria antes de venir al departamento de emergencia. Despus de las horas de consultorio, randall doctor o randall asociado/a est disponible por telfono. El mdico o enfermero de lucina en el servicio telefnico puede asesorarle por sarah medio para atender el problema, o ceci contrario se puede programar chitra jacob. 2) Si usted no tiene un mdico de atencin primaria: Llame al mdico o clnica de referencia que aparece abajo leonidas las horas de consultorio para hacer chitra jacob para que le vean. CLINICAS: [facility] [phone] [id number] [facility] [phone] [id number] [facility] [phone] [facility] [phone] [facility] [phone] [facility]. [phone] [place] Additional Instructions: No mas mejor en 2-3 alexandre, regresar. Mas peor en 24 horas, regresear rapidamente. Ir a doctor primario en 1-2 alexandre. Usar instrucciones cuando kristi medicamento. FREDRICK DE LA ROSA PA-C Jul 13, 2017 17:49
--- NOTE | 2017-07-13 17:49 | ERD ---
ER Documentation Chief Complaint Chief Complaint abd pain with vomiting /diarrhea x 1 day HPI Patient is a 47-year-old female with past medical history of kidney stones presenting to the emergency department with complaints of left sided suprapubic pain which began today. The pain feels burning in quality. Associated symptoms include hematuria, nausea, vomiting, diarrhea, and fever. Pain is worse with movement. The patient was here recently and had a full workup which showed a nonobstructing kidney stones, she was advised to follow-up with urology but has not done so yet. She has taken no medication for relief of symptoms. No other symptoms reported currently. ROS All systems reviewed and are negative except as per history of present illness. Medications Home Meds Active Scripts Hydrocodone/Acetaminophen ([place] 5-325 Tablet) 1 Each Tablet, 1 TAB PO Q6H Y for PAIN, #10 TAB Prov:FREDRICK DE LA ROSA PA-C 07/13/17 Naproxen* (Naprosyn*) 500 Mg Tablet, 500 MG PO BID Y for PAIN AND/OR INFLAMMATION, #20 TAB Prov:FREDRICK DE LA ROSA PA-C 07/13/17 Ciprofloxacin Hcl* (Ciprofloxacin Hcl*) 500 Mg Tablet, 500 MG PO BID for 10 Days , #20 TAB Prov:FREDRICK DE LA ROSA PA-C 07/13/17 Ibuprofen* (Motrin*) 600 Mg Tab, 600 MG PO Q6, #30 TAB Prov:JUAN ARELLANO 06/03/17 Hydrocodone/Acetaminophen ([place] 5-325 Tablet) 1 Each Tablet, 1 TAB PO Q6H Y for PAIN, #20 TAB Prov:JUAN ARELLANO 06/03/17 Ondansetron (Ondansetron Odt) 4 Mg Tab.rapdis, 4 MG PO Q6H Y for NAUSEA AND/OR VOMITING, #10 TAB Prov:REJI ALVAREZ PA-C 04/17/17 Dicyclomine Hcl* (Bentyl*) 10 Mg Capsule, 10 MG PO QID, #20 CAP Prov:REJI ALVAREZ PA-C 04/17/17 Diclofenac Sodium* (Diclofenac Sodium*) 50 Mg Tablet.dr, 50 MG PO TID, #10 TAB Prov:MARGRET SALAZAR DO 09/04/15 Hydrocodone Bit-Acetaminophen* ([place]*) 5-325 Mg Tab, 1 TAB PO Q6 Y for PAIN, # 10 TAB Prov:MARGRET SALAZAR DO 09/04/15 Reported Medications Vits W-Ca,Fe,Fa(<1MG) () 1 Tab Tablet, 1 TAB PO DAILY 06/08/11 Allergies Allergies: Coded Allergies: Penicillins (Verified Allergy, Mild, 06/02/17) PMhx/Soc History of Surgery: Yes (, JANAY, APPY) Anesthesia Reaction: No Hx Neurological Disorder: No Hx Respiratory Disorders: No Hx Cardiac Disorders: No Hx Psychiatric Problems: No Hx Miscellaneous Medical Probl: No Hx Alcohol Use: No Hx Substance Use: No Hx Tobacco Use: No Smoking Status: Never smoker Physical Exam Vitals Vital Signs Date Time Temp Pulse Resp B/P Pulse Ox O2 Delivery O2 Flow Rate FiO2 07/13/17 13:17 101.3 118 18 166/92 99 Physical Exam Const: Patient is nontoxic-appearing. Mildly distressed secondary to pain. Head: Atraumatic Eyes: Normal Conjunctiva ENT: Normal External Ears, Nose and Mouth. Neck: Full range of motion..~ No meningismus. Resp: Clear to auscultation bilaterally Cardio: Regular rate and rhythm, no murmurs Abd: Soft, non tender to the 4 quadrants of the abdomen, however there is tenderness to palpation of the left-sided suprapubic area, no rebound tenderness or guarding, no McBurney's point tenderness, non distended. Normal bowel sounds Skin: No petechiae or rashes Back: No midline or flank tenderness Ext: No cyanosis, or edema Neur: Awake and alert Psych: Normal Mood and Affect Result Diagram: 07/13/17 1529 07/13/17 1529 Results 24 hrs Laboratory Tests Test 07/13/17 15:00 07/13/17 15:29 Urine Color TYREE Urine Clarity SLIGHTLY CLOUDY Urine pH 6.0 Urine Specific [place] 1.015 Urine Ketones NEGATIVEmg/dL Urine Nitrite POSITIVEmg/dL Urine Bilirubin NEGATIVEmg/dL Urine Urobilinogen 2+mg/dL Urine Leukocyte Esterase 1+Nesha/ul Urine Microscopic RBC > 182/HPF Urine Microscopic WBC > 182/HPF Urine Bacteria FEW/HPF Urine Hemoglobin 3+mg/dL Urine Glucose NEGATIVEmg/dL Urine Total Protein 2+mg/dl White Blood Count 20.010^3/ul Red Blood Count 4.5810^6/ul Hemoglobin 13.5g/dl Hematocrit 40.2% Mean Corpuscular Volume 87.8fl Mean Corpuscular Hemoglobin 29.5pg Mean Corpuscular Hemoglobin Concent 33.6g/dl Red Cell Distribution Width 13.2% Platelet Count 72777^3/UL Mean Platelet Volume 9.8fl Neutrophils % 84.8% Lymphocytes % 7.9% Monocytes % 5.9% Eosinophils % 0.7% Basophils % 0.3% Nucleated Red Blood Cells % 0.0/100WBC Neutrophils # 17.010^3/ul Lymphocytes # 1.610^3/ul Monocytes # 1.210^3/ul Eosinophils # 0.210^3/ul Basophils # 0.110^3/ul Nucleated Red Blood Cells # 0.010^3/ul Prothrombin Time 12.1Sec Prothrombin Time Ratio 0.9 INR International Normalized Ratio 0.90 Activated Partial Thromboplast Time 26.9Sec Sodium Level 140mmol/L Potassium Level 4.5mmol/L Chloride Level 104mmol/L Carbon Dioxide Level 24mmol/L Anion Gap 17 Blood Urea Nitrogen 12mg/dl Creatinine 0.63mg/dl Glucose Level 132mg/dl Lactic Acid Level 1.2mmol/L Calcium Level 9.5mg/dl Total Bilirubin 0.7mg/dl Direct Bilirubin 0.00mg/dl Indirect Bilirubin 0.7mg/dl Aspartate Amino Transf (AST/SGOT) 22IU/L Alanine Aminotransferase (ALT/SGPT) 25IU/L Alkaline Phosphatase 92IU/L Total Protein 8.4g/dl Albumin 4.5g/dl Globulin 3.90g/dl Albumin/Globulin Ratio 1.15 Lipase 87U/L Current Medications Medications (Trade) Dose Ordered Sig/Rose Marie Route PRN Reason Start Time Stop Time Status Last Admin Dose Admin Sodium Chloride (NS) 1,000 ml @ 1,000 mls/hr Q1H STAT IV 07/13/17 15:24 07/13/17 16:23 DC 07/13/17 15:56 Morphine Sulfate (morphine) 4 mg ONCE STAT IV 07/13/17 15:24 07/13/17 15:27 DC 07/13/17 16:04 Ondansetron HCl (Zofran Inj) 4 mg ONCE STAT IV 07/13/17 15:24 07/13/17 15:27 DC 07/13/17 15:56 Acetaminophen (Tylenol Tab) 650 mg ONCE ONCE PO 07/13/17 15:30 07/13/17 15:31 DC 07/13/17 15:56 Ibuprofen 600 mg 600 mg ONCE ONCE PO 07/13/17 15:30 07/13/17 15:31 DC 07/13/17 15:56 Ceftriaxone Sodium (Rocephin) 50 ml @ 100 mls/hr ONCE ONCE IVPB 07/13/17 17:30 07/13/17 17:59 DC 07/13/17 17:43 Procedures/[facility] 47 old female presenting to the emergency department with complaints of left- sided suprapubic pain. The patient was placed in a gurney. IV line established. She was given IV fluids, IV morphine, IV Zofran, p.o. Tylenol, p.o. ibuprofen, and reevaluation the patient's temperature reduced and she was feeling significantly improved. Upon review of the patient's past medical records, it was noted that she had a abdominal and pelvic CT and pelvis ultrasound on 06-02-17 which showed multiple calculi at the left ureterovesical junction measuring up to 10 mm in size there is also mild to moderate left- sided hydronephrosis. There is no evidence of obstruction at that time. On pelvic ultrasound there is a fundal fibroid measuring 2.3 cm. The right ovary was not visualized. Otherwise normal pelvic ultrasound. On today's visit, review of laboratory results showed leukocytosis at 20 with slight left shift. Chemistry panel showed no significant acute abnormalities. Lactic acid was 1.2, not elevated. Review of urinalysis showed 3+ hemoglobin, 2 + protein, 1+ leukocyte, and positive for nitrite, concerning for pyelonephritis. Upon review of this information, I ordered IV ceftriaxone 1 g. Review of imaging results from today: CT abdomen and pelvis without contrast showed improved left-sided hydronephrosis with no substantial change in stone burden in the left UV junction. There are numerous nonobstructing stones in the right kidney measuring up to 1.9 cm, unchanged. Few punctate 1-2 mm nonobstructing stones in the left kidney, unchanged. Status post cholecystectomy. No biliary duct dilatation. Scattered aortic vascular calcifications. Upon review of the workup in the emergency department, I had a discussion with the patient stating that it is very important for her to follow-up with urology. She states she does have an appointment with specialist this Monday, in 4 days. She is to return immediately if she has any new or worsening symptoms. All lab results and imaging results were shared with the patient. I discussion with the attending physician, Dr. Nitza Smith, who is in agreement with the assessment and plan to have very close urological follow-up with immediate return if she has any new or worsening symptoms. The patient demonstrated good understanding of all information. She will be discharged home with prescriptions for ciprofloxacin, [place], and ibuprofen. No evidence of life-threatening pathology at time of discharge. Pt/family in agreement with discharge plan/diagnosis. Pt/family advised to return immediately with any new or worsening symptoms. Follow-up with primary care physician within the next 1-2 days. Disclaimer: Inadvertent spelling and grammatical errors are likely due to EHR/ dictation software use and do not reflect on the overall quality of patient care. Also, please note that the electronic time recorded on this note does not necessarily reflect the actual time of the patient encounter. PROCEDURE: CT Abdomen and Pelvis without contrast. CLINICAL INDICATION: Abdominal pain with nausea and vomiting. TECHNIQUE: CT scan of the abdomen and pelvis without contrast was performed on a multidetector high-resolution CT scanner. The patient was scanned without intravenous contrast. Coronal and sagittal reformatted images were obtained from the axial source images. Images were reviewed on a high-resolution PACS workstation. The total exam CTDI equals 11.97 mGy and the total exam DLP equals 675.26 mGy-cm. One or more of the following dose reduction techniques were used: Automated exposure control. Adjustment of the mA and/or kV according to patient size. Use of iterative reconstruction technique. COMPARISON: CT abdomen and pelvis 06/03/2017. FINDINGS: CT abdomen: The lung bases are clear. The heart size is normal, without pericardial thickening or effusion. The liver is normal in size and density without focal mass or intrahepatic biliary dilatation. The spleen is normal in size and homogeneous in density. The stomach is partially collapsed, but is grossly unremarkable. The pancreas as visualized is normal. The gallbladder is surgically absent. There is no evidence for biliary dilatation. The adrenal glands are symmetric and normal. There has been interval improvement of left-sided hydroureteronephrosis. Multiple stones in the left UV junction appear similar to prior. The largest measures up to 9 mm. There are multiple nonobstructing stones in the right kidney measures up to 1.9 cm in the upper pole right kidney. There are a few punctate nonobstructing stones in the left kidney. The aorta is of normal caliber. Scattered aortic vascular calcifications are present. There is no retroperitoneal lymphadenopathy. The lexus hepatis region is clear. The bowel and mesentery, as visualized, are equally unremarkable. CT pelvis: The small bowel loops situated within the pelvis are unremarkable. The pelvic organs are normal. The pelvic sidewalls and inguinal regions are clear. The sigmoid colon and rectum are unremarkable. No mass, lymphadenopathy, or free fluid is seen. No acute inflammation is seen. The surrounding osseous structures are remarkable for degenerative spondylosis of the spine. No osteolytic or osteoblastic lesion is detected. IMPRESSION: 1. Improved left-sided hydronephrosis with no substantial change in stone burden in the left UV junction. 2. Numerous nonobstructing stones in the right kidney measures up to 1.9 cm, unchanged. 3. Few punctate 1-2 mm nonobstructing stones in the left kidney, unchanged. 4. Status post cholecystectomy. No biliary ductal dilatation. 5. Scattered aortic vascular calcifications. RPTAT: BB .Landen Moreno MD, MD Date Time Electronically viewed and signed by .Landen Moreno MD, on 07/13/2017 16:20 PROCEDURE: US Pelvis. CLINICAL INDICATION: Pelvic pain. TECHNIQUE: The pelvis was evaluated with transabdominal and transvaginal sonography in the axial and sagittal planes. COMPARISON: No prior study is available for comparison. FINDINGS: The uterus measures 9.3 x 4.7 x 5.8 cm. There is a fibroid on the left side anteriorly in the uterus measuring 2.2 x 1.7 x 1.8 cm there is no other uterine mass. The endometrium is normal measuring 8.4 mm. The ovaries are not visualized. There is no other pelvic mass or free fluid. IMPRESSION: 1. Fibroid in the left side of the uterus anteriorly measuring 2.2 cm in maximal dimension. 2. Normal endometrium. 3. Ovaries not visualized. 4. Otherwise normal pelvic ultrasound. RPTAT: QQ .Harjit Saldaña MD, Date Time Electronically viewed and signed by .Harjit Saldaña MD, MD on 07/13/2017 16:43 Departure Diagnosis: Primary Impression: Pyelonephritis Condition: Fair Patient Instructions: Pyelonephritis, Female (Adult) [facility] Usted se pacheco hecho un examen mdico de control que le indica que no est en chitra condicin que requiera tratamiento urgente en el Departamento de Emergencia. Un estudio ms profundo y el tratamiento de randall condicin pueden esperar sin ningn riesgo hasta que usted sea atendida/o en el consultorio de randall mdico o chitra cl smith. Es responsabilidad suya arreglar chitra jacob para el seguimiento del ceci. MANEJO DE CONDICIONES NO URGENTES EN EL FUTURO 1) Si usted tiene un mdico de atencin primaria: Usted debera llamar a randall mdico de atencin primaria antes de venir al departamento de emergencia. Despus de las horas de consultorio, randall doctor o randall asociado/a est disponible por telfono. El mdico o enfermero de lucina en el servicio telefnico puede asesorarle por sarah medio para atender el problema, o ceci contrario se puede programar chitra jacob. 2) Si usted no tiene un mdico de atencin primaria: Llame al mdico o clnica de referencia que aparece abajo leonidas las horas de consultorio para hacer chitra jacob para que le vean. CLINICAS: [facility] [id number] [facility] [phone] [id number] [facility] [phone] [facility] [id number] [facility] [phone] [address] [facility]. [phone] [place] Additional Instructions: No mas mejor en 2-3 alexandre, regresar. Mas peor en 24 horas, regresear rapidamente. Ir a doctor primario en 1-2 alexandre. Usar instrucciones cuando kristi medicamento. FREDRICK DE LA ROSA PA-C Jul 13, 2017 17:49
[2017-07-13] MEDS ORDERED: ONDA4TAB14 PO (18:50)
[2017-07-13 19:08] VITALS: BP 132/83; PULSE 100; RESP 20; TEMP 98.8
== END 2017-07-13 19:11 | disposition home or self-care (01) ==
LOC: FTE 13:15
DX: N12 Tubulo-interstitial nephritis, not specified as acute or chronic (principal)
CPT/HCPCS: 36415; 74176; 76830; 76856; 80053; 81001; 83605; 83690; 85025; 85610; 85730; 87086; 96374; 96375; 96376; J0696; J2270; J2405; J7030; Z7502; Z7610